=== PATIENT | male | born 1990 | race Caucasian/White ===

== ENCOUNTER 2024-12-29 18:51 | Emergency (ER) | payer SELFPAY ==
--- OUTSIDE RECORDS SUMMARY | 2015-11-12 19:00 | XMS_ITS | Continuity of Care Document ---
Author Organization [employer] [place] Address [address] [place] [address] [address] [place] [address] Phone Care Team Providers Care Stone Derrickman And Rigger Name Role Phone Tucker Alfonso OT Unavailable Unavailable Procedures Procedure Date HOME COMM TRAIN WORK CONDITIONING INITIAL 2 HOURS WORK COND/WORK HARD RE EVAL WORK CONDITIONING INITIAL 2 HOURS WORK CONDITIONING ADD'L HRS WORK CONDITIONING INITIAL 2 HOURS WORK CONDITIONING ADD'L HRS WORK CONDITIONING INITIAL 2 HOURS WORK CONDITIONING ADD'L [facility]RS WORK CONDITIONING INITIAL 2 HOURS WORK CONDITIONING ADD'L HRS WORK CONDITIONING INITIAL 2 HOURS WORK CONDITIONING ADD'L HRS WORK CONDITIONING INITIAL 2 HOURS WORK CONDITIONING ADD'L HRS WORK CONDITIONING INITIAL 2 HOURS WORK CONDITIONING ADD'L HRS WORK CONDITIONING INITIAL 2 HOURS WORK CONDITIONING ADD'L HRS WORK CONDITIONING INITIAL 2 HOURS WORK CONDITIONING ADD'L HRS WORK CONDITIONING INITIAL 2 HOURS WORK CONDITIONING ADD'L HRS WORK CONDITIONING INITIAL 2 HOURS WORK CONDITIONING ADD'L HRS WORK CONDITIONING INITIAL 2 HOURS WORK CONDITIONING ADD'L HRS WORK CONDITIONING INITIAL 2 HOURS WORK CONDITIONING ADD'L HRS WORK CONDITIONING INITIAL 2 HOURS WORK CONDITIONING ADD'L HRS WORK CONDITIONING INITIAL 2 HOURS WORK CONDITIONING ADD'L HRS WORK COND/WORK HARD RE EVAL WORK CONDITIONING INITIAL 2 HOURS WORK CONDITIONING ADD'L HRS WORK CONDITIONING INITIAL 2 HOURS WORK CONDITIONING ADD'L HRS WORK CONDITIONING INITIAL 2 HOURS WORK CONDITIONING ADD'L HRS WORK CONDITIONING INITIAL 2 HOURS WORK CONDITIONING ADD'L HRS WORK CONDITIONING INITIAL 2 HOURS WORK CONDITIONING ADD'L HRS WORK CONDITIONING INITIAL 2 HOURS WORK CONDITIONING INITIAL 2 HOURS WORK CONDITIONING ADD'L HRS WORK CONDITIONING INITIAL 2 HOURS WORK CONDITIONING ADD'L [facility] WORK CONDITIONING INITIAL 2 HOURS WORK CONDITIONING [facility]IT[facility] 2 HOURS WORK CONDITIONING ADD'L [facility] WORK CONDITIONING INITIAL 2 HOURS WORK CONDITIONING ADD'L [facility] WORK CONDITIONING INITIAL 2 HOURS WORK CONDITIONING ADD'L [facility] WORK COND/WORK HARD EVAL Advance Directives Directive Yes / No Effective Date File Name No Information Encounters Encounter Description Practice Location Reason(s) For Visit Diagnoses Date Provider Providers Copied on Encounter [facility] [facility] [address], [place], [id number], [place] tel:[phone] [place] No Information 6 Kaden Ceballos. [address] [facility], [address], [place], [address], [place]. tel:[phone] Referring Provider: Sherice Neville S Chandan Aviles [facility] [address], [place], [address]. tel:[phone] [facility] [facility] [address], [place], [place], [id number], [place] tel:[phone] [place] No Information 3-201 6 Holt Gricel. [address] [facility], [address], [place], [place], [facility], . tel:[phone] Referring Provider: Christine Bello [address], [place], [address]. tel:[phone], [place], [place], [id number], tel:[phone] [place] No Information 0-201 6 Zuccarello Ken. . Referring Provider: Christine Bello [address], [place], [address]. tel:[phone], [place], [place], [address], tel:[phone] [place] No Information 7-201 6 Holt Gricel. [address] [place] [address], [address], [place], [place], [facility], . tel:[phone] Referring Provider: Christine Bello [address], [place], [address]. tel:[phone], [place], [place], [address], tel:[phone] [place] No Information 6-201 6 Holt Gricel. [address] [place] [address], [address], [place], [place], [facility], [place]. tel:[phone] Referring Provider: Christine Bello, [address], [place], [address]. tel:[phone] [address], [place], [place], [address], tel:[phone] [place] No Information 5-201 6 Holt Gricel. [address] [facility], [address], [place], [place], [facility], [place]. tel:[phone] Referring Provider: Christine Bello, [address], [place], [address]. tel:[phone] [address], [place], [address], tel:[phone] [place] No Information Jeffrey-1 4-201 6 Holt Gricel. [address] [place] [address], [address], [place], [facility], . tel:[phone] Referring Provider: Christine Bello, [address], [place], [address]. tel:[phone] [address], [place], [place], [address], tel:[phone] [place] No Information Jeffrey-1 3-201 6 Holt Gricel. [address] [place] [address], [address], [place], [facility], [place]. tel:[phone] Referring Provider: Christine Bello [address], [place], [address]. tel:[phone] [address], [place], [place], [address], tel:[phone] [place] No Information Jeffrey-1 0-201 6 Holt Gricel. [address] [place] [address], [address], [place], [address], [place]. tel:[phone] Referring Provider: Christine Bello [address], [place], [address]. tel:[phone], [place], [address], tel:[phone] [place] No Information Jeffrey-0 9-201 6 Holt Gricel. [address] [place] [address], [address], [place], [address], . tel:[phone] Referring Provider: Christine Bello, [address], [place], [address]. tel:[phone], [place], [place], [address], tel:[phone] [place] No Information Jeffrey-0 8-201 6 Holt Gricel. [address] [place] [address], [address], [place], [facility], . tel:[phone] Referring Provider: Christine Bello, [address], [place], [address]. tel:[phone] [address], [place], [place], [address], tel:[phone] [place] No Information Jeffrey-0 7-201 6 Holt Gricel. [address] [place] [address], [address], [place], [facility], [place]. tel:[phone] Referring Provider: Christine Bello, [address], [place], [address]. tel:[phone] [address], [place], [place], [address], tel:[phone] [place] No Information Jeffrey-0 6-201 6 Holt Gricel. [address] [place] [address], [address], [place], [facility], [place]. tel:[phone] Referring Provider: Christine Bello, [address], [place], [address]. tel:[phone], [id number], tel:[phone] [place] No Information Jeffrey-0 3-201 6 Holt Gricel. [address] [place] [address], [address], [place], [place], [facility], . tel:[phone] Referring Provider: Christine Bello [address], [place], [address]. tel:[phone] [address], [place], [place], [address], tel:[phone] [place] No Information Jeffrey-0 2-201 6 Holt Gricel. [address] [place] [address], [address], [place], [facility], . tel:[phone] Referring Provider: Imani Neville[address], [place], [address]. tel:[phone] [address], [place], [place], [address], tel:[phone] [place] No Information Jeffrey-0 1-201 6 Holt Gricel. [address] [place] [address], [address], [place], [facility], . tel:[phone] Referring Provider: Imani Neville[address], [place], [address]. tel:[phone] [address], [place], [place], [address], tel:[phone] [place] No Information May-3 1-201 6 Holt Gricel. [address] [place] [address], [address], [place], [facility], . tel:[phone] Referring Provider: Christine Bello [address], [place], [address]. tel:[phone] [address], [address], tel:[phone] [place] No Information May-2 7-201 6 Holt Gricel. [address] [place] [address], [address], [place], [facility], . tel:[phone] Referring Provider: Christine Bello [address], [place], [address]. tel:[phone], [place], [place], [address], tel:[phone] [place] No Information May-2 5-201 6 Lyricanne Rogers. . Referring Provider: Christine Bello [address], [place], [address]. tel:[phone] [address], [place], [place], [address], tel:[phone] [place] No Information May-2 3-201 6 Holt Gricel. [address] [place] [address], [address], [place], [facility], . tel:[phone] Referring Provider: Christine Bello [address], [place], [address]. tel:[phone] [address], [place], [place], [address], tel:[phone] [place] No Information May-2 0-201 6 Holt Gricel. [address] [place] [address], [address], [place], [facility], . tel:[phone] Referring Provider: Christine Bello [address], [place], [address]. tel:[phone] [address], [place], [place], [address], tel:[phone] [place] No Information May-1 9-201 6 Holt Gricel. [address] [place] [address], [address], [place], [facility], . tel:[phone] Referring Provider: Christine Bello [address], [place], [address]. tel:[phone] [address], [place], [place], [address], tel:[phone] [place] No Information August-1 8-201 6 Holt Gricel. [address] [place] [address], [address], [place], [facility], . tel:[phone] Referring Provider: Imani Neville[address], [place], [address]. tel:[phone] [address], [place], [place], [address], tel:[phone] [place] No Information August-1 6-201 6 Holt Gricel. [address] [place] [address], [address], [place], [facility], . tel:[phone] Referring Provider: Imani Neville[address], [place], [address]. tel:[phone] [address], [place], [place], [address], tel:[phone] [place] No Information August-1 3-201 6 Holt Gricel. [address] [place] [address], [address], [place], [facility], . tel:[phone] Referring Provider: Christine Bello [address], [place], [address]. tel:[phone] [address], [place], [place], [address], tel:[phone] [place] No Information August-0 6-201 6 Holt Gricel. [address] [place] [address], [address], [place], [facility], . tel:[phone] Referring Provider: Christine Bello [address], [place], [address]. tel:[phone], [place], [place], [address], tel:[phone] [place] No Information May-0 5-201 6 Holt Gricel. [address] [place] [address], [address], [place], [facility], . tel:[phone] Referring Provider: Imani eNville[address], [place], [address]. tel:[phone], [place], [place], [address], tel:[phone] [place] No Information May-0 4-201 6 Holt Gricel. [address] [place] [address], [address], [place], [facility], . tel:[phone] Referring Provider: Imani Neville[address], [place], [address]. tel:[phone], [place], [place], [address], tel:[phone] [place] No Information May-0 2-201 6 Holt Gricel. [address] [place] [address], [address], [place], [facility], . tel:[phone] Referring Provider: Imani Neville[address], [place], [address]. tel:[phone], [place], [place], [address], tel:[phone] [place] No Information Apr-2 9-201 6 Holt Gricel. [address] [place] [address], [address], [place], [facility], . tel:[phone] Referring Provider: Christine Bello [address], [place], [address]. tel:[phone] [facility] [address] [facility] [address], [place], [place], [address], tel:[phone] [place] No Information 6 Jonathon Monsalve. [address] [facility], [address], [place], [address], [place]. tel:[phone] Referring Provider: Christine Bello, [address] [facility] [address] [facility] [address], [place], [address]. tel:[phone] [facility] [address], [place], [place], [address], tel:[phone] [place] Stiffness of left knee, not elsewhere classifiedMuscle weakness (generalized)Disp l commnt fx shaft of l femur, init for opn fx type I/2Unsp fracture of left patella, subs for clos fx w routn heal 6 Usha Zhou . Referring Provider: Christine Bello, [address] [facility] [address], [place], [address]. tel:[phone] Family History Family Member Type Diagnosis Age At Onset No Information Payers Payer name Insurance type Covered libertarian ID Authorbrenda salazar(s) [employer] [id number] Social History Type Description Quantity Date Captured Comments Sex Male Smoking Status No Information Chief Complaint And Reason For Visit No Information Reason For Referral Reason For Referral No Information History Of Present Illness Encounter Date Complaint History Of Prese nt Illness No Information Functional Status Date Functional Assessmen t No Information Instructions Date Instruction Additional Infor mation No Information Assessments Type Assessment Date No Information Patient Care Teams Name Effective Dates (start - stop) Status Members No Information
[2024-12-29 19:00] VITALS: BP 140/78; PULSE 74; RESP 20; TEMP 36.6; O2SAT 100
--- NOTE | 2024-12-29 19:25 | ED.WOUNDLAC ---
HPI - Wound/Laceration General Chief Complaint: Wound/Laceration Stated Complaint: Head lac Time Seen by Provider: 12/29/24 19:15 Source: patient and RN notes reviewed Mode of arrival: ambulatory Limitations: no limitations History of Present Illness HPI narrative: 34-year-old male presents Express Care complaining of head laceration. Patient said approximately 1 hour ago he was under a slide at a park with his children when a accidentally struck his head on the bottom of the slide causing a laceration to the top of his scalp. Patient denies any loss of consciousness, or any other injuries. Patient reports a minor headache. Patient denies any vision changes, nausea, vomiting, slurred speech, focal weakness, dizziness, lightheadedness, seizures, neck pain, back pain, or any other symptoms. Patient said he got his tetanus updated 4 days ago. Bleeding controlled prior to arrival. Related Data Home Medications ?Medication ?Instructions ?Recorded ?Confirmed ?Last Taken ?Type No Home Medications 12/29/24 Unknown History Allergies Allergy/AdvReac Type Severity Reaction Status Date / Time No Known Allergies Allergy Verified 12/29/24 19:07 Review of Systems Review of Systems: CONSTITUTIONAL: Denies fever, chills, or sweats. EYES: Denies visual changes, redness, or discharge. ENT: Denies rhinorrhea, congestion, sore throat, or otalgia. CARDIOVASCULAR: Denies chest pain, palpitations, dizziness, lightheadedness, or edema. RESPIRATORY: Denies cough or dyspnea. GASTROINTESTINAL: Denies abdominal pain, nausea, vomiting, or diarrhea. GENITOURINARY: Denies dysuria or hematuria. SKIN: Denies rash or itching. MUSCULOSKELETAL: Denies back pain, joint pain, or myalgia. NEUROLOGIC: Positive for headache. Negative for loss of consciousness, focal weakness, slurred speech, seizures, facial droop, numbness, or weakness. PSYCHIATRIC: Denies anxiety or depression. All other systems reviewed are negative, except as documented in HPI. PMFSH Comments At the time of my signature, I reviewed and agree with the nursing past medical, surgical, social, and family history. There is no relevant family history pertinent to the patient complaint. Exam Narrative: GENERAL: This is a well-nourished, well-developed adult, in no apparent distress. They are non ill-appearing, nontoxic appearing. HEAD: normocephalic, laceration present scalp. See skin section. No raccoon eyes or Higgins signs. EYES: Sclera clear/white. Conjunctiva normal. Vision is grossly intact. Extraocular movements intact. Pupils PERRLA EARS: External ears normal, Hearing grossly intact. NOSE: External nose normal THROAT: Mucous membranes moist, NECK: Neck supple, non-tender without lymphadenopathy, masses or thyromegaly. No cervical point tenderness, crepitus, or step-offs. CARDIOVASCULAR: Regular rate and rhythm RESPIRATORY: Respiratory rate normal, respiratory effort nonlabored, no respiratory distress SKIN: Scalp: Approximately 4 cm linear laceration present to the left side of the parietal scalp. Lacerations well approximated and closed. Wound is superficial. No area of fluctuance, no induration, no exudate. It is nontender to palpate. Mild bruising present. NEURO: awake, alert, and oriented to person, place and time. There were no obvious focal neurologic abnormalities. EXTREMITIES: No joint tenderness, effusion, or edema noted. BACK: Nontender without deformity. Course Course Emergency Course: Portions of this record may have been created with voice recognition software Level of Care: Express Care Visit Vital Signs Vital signs: Vital Signs Temperature 97.9 F 12/29/24 19:00 Pulse Rate 74 12/29/24 19:00 Respiratory Rate 20 12/29/24 19:00 Blood Pressure 140/78 12/29/24 19:00 Pulse Oximetry 100 12/29/24 19:00 Oxygen Delivery Room Air 12/29/24 19:00 Temperature 97.9 F 12/29/24 19:00 Pulse Rate 74 12/29/24 19:00 Respiratory Rate 20 12/29/24 19:00 Blood Pressure 140/78 12/29/24 19:00 Pulse Oximetry 100 12/29/24 19:00 Oxygen Delivery Room Air 12/29/24 19:00 Reviewed MDM - Wound/Laceration MDM Narrative Medical decision making narrative: Laceration is well approximated and superficial. No indication for wound closure. Bacitracin applied to wound along with wound care and irrigation performed by nursing staff. Patient's tetanus is up-to-date. [place] CT head injury/trauma rule score 0, low suspicion for significant head trauma, no CT brain indicated. Patient has a mild headache, no neurological symptoms. Discussed physical exam findings. Advised supportive measures and signs/symptoms to go to the ER. Pt is appropriate for outpt treatment and f/u. Differential Diagnosis Differential diagnosis: Likely laceration and other (Concussion, close head injury, intracranial hemorrhage, avulsion) Critical Care Time Critical Care Time Critical Care Time: No Discharge Plan Discharge Clinical Impression: Laceration Patient Disposition: Home Condition: Stable Instructions: Antibiotic Form, Laceration (ED) Additional Instructions: Wash the wound daily with mild soap and water. Do not soak or scrub the wound. Avoid dirty water till the wound has scabbed over. Please keep the wound dry and covered especially if it is draining. You may take ibuprofen 600 mg to 800 mg every 6-8 hours. Do not exceed more than 800 mg of ibuprofen per dose. Do not exceed more than 3200 mg ibuprofen in a day. You may take up to 1000 mg Tylenol every 6-8 hours. Do not exceed 1000 mg per dose, do exceed more than 4000 mg of Tylenol in a day. Follow-up PCP in 3-5 days. He developed worsening redness, swelling, drainage, green/yellow discharge, fevers, severe headaches, nausea, vomiting, vision changes, slurred speech, one-sided weakness, loss of consciousness, or any serious concerns please go to the ER immediately. Patient Language: Setswana Prescriptions: No Action No Home Medications Follow-up/Referrals: PHYSICIAN,[employer] [Primary Care Provider, Internal Medicine] Time of Disposition: 19:28
== END 2024-12-29 19:31 | disposition home or self-care (01) ==
DX: S01.01XA Laceration without foreign body of scalp, initial encounter (principal); W22.8XXA Striking against or struck by other objects, initial encounter; Y92.830 Public park as the place of occurrence of the external cause
CPT/HCPCS: 99212; G0463